=== PATIENT | female | born 1935 | race Caucasian/White ===

== ENCOUNTER 2017-05-19 10:04 | Inpatient (IN) | payer MEDICARE, OTHER ==
[~2017-05-19] VITALS: Ht 165.1 cm; Wt 61.8 kg
[2017-05-19] VITALS (87 sets, daily range): BP systolic 133; BP diastolic 73; PULSE 86; TEMP 97.8; O2SAT 89–99
[2017-05-19] MEDS ORDERED: EXELON3 MG PO (11:02)
[2017-05-19] MEDS ORDERED: COZAAR100 MG PO (11:02)
[2017-05-19] MEDS ORDERED: AZULFIDINE500 MG/TAB PO (11:03)
[2017-05-19] MEDS ORDERED: SYNTHROID0.05 MG/TA PO (11:05)
[2017-05-19] MEDS ORDERED: LAMICTAL 25MG T25 MG PO (11:06)
[2017-05-19] MEDS ORDERED: REQUIP 0.5MG0.5 MG PO (11:06)
[2017-05-19] MEDS ORDERED: ASTELIN NASAL S34 ML NS (11:07)
[2017-05-19] MEDS ORDERED: FOLIC ACID 11 MG/TA1 PO (11:07)
[2017-05-19 11:25] LABS: BASO # 0.1 (0.0-0.2); BASO % 0.7 % (0.0-2.0); EOS # 0.3 (0.0-0.7); EOS % 3.3 % (0-4.0); GRAN # 6.4 (1.4-6.5); GRAN % 66.2 % (42.2-75.2); HEMATOCRIT 40.5 % (37.0-47.0); HEMOGLOBIN 13.6 g/dl (12.5-16.0); LYMPH # 1.6 (1.2-3.4); LYMPH % 16.6 % (20.0-51.0); MEAN CELL VOLUME 88 fl (80.0-100.0); MEAN CORPUSCULAR HEMOGLOBIN 30 pg (27.0-31.0); MEAN CORPUSCULAR HGB CONC 34 g/dl (33.0-37.0); MEAN PLATELET VOLUME 9.1 fl (7.4-10.4); MONO # 1.2 (0.1-0.6); MONO % 12.6 % (1.7-9.3); PLATELET COUNT 499 K/mm3 (130-400); RED BLOOD COUNT 4.61 M/mm3 (4.10-5.30); REDCELL DISTRIBUTION WIDTH-CV 13.2 % (11.5-14.5); WHITE BLOOD COUNT 9.7 K/mm3 (4.8-10.8)
[2017-05-19 11:38] LABS: ADJUSTED CALCIUM 9.7 mg/dL (8.4-10.2); ALANINE AMINOTRANSFERASE 26 U/L (9-52); ALBUMIN 3.9 gm/dL (3.5-5.0); ALKALINE PHOSPHATASE 71 U/L (50-136); ANION GAP 12 mmol/L (7-16); BILIRUBIN,TOTAL 0.5 mg/dL (0.0-1.0); BLOOD UREA NITROGEN 23 mg/dL (7-17); CALCIUM 9.6 mg/dL (8.4-10.2); CARBON DIOXIDE 24 mmol/L (22-30); CHLORIDE 101 mmol/L (98-107); CREATININE, serum 1.01 mg/dL (0.52-1.25); GLUCOSE 96 mg/dL (74-106); POTASSIUM 4.1 mmol/L (3.4-5.0); SODIUM 137 mmol/L (137-145); TOTAL PROTEIN 7.3 gm/dL (6.4-8.2)
[2017-05-19 20:06] LABS: PH 5 (5-8); SQUAMOUS EPITHELIAL None Seen /hpf; URINE APPEARANCE Hazy; URINE BACTERIA None Seen /hpf; URINE BILIRUBIN Negative (NEGATIVE); URINE BLOOD Negative (NEGATIVE); URINE COLOR Amber; URINE GLUCOSE Negative (NEGATIVE); URINE KETONE Trace (NEGATIVE); URINE UROBILINOGEN Negative (NEGATIVE); URINE WBC 0-2 /hpf
[2017-05-19 20:16] LABS: AMPHETAMINE URINE NEGATIVE; BARBITURATES URINE NEGATIVE; BENZODIAZEPINES URINE NEGATIVE; BUPRENORPHINE URINE NEGATIVE; METHADONE URINE NEGATIVE; OPIATES URINE NEGATIVE; OXYCODONE URINE NEGATIVE; PHENCYCLIDINE URINE NEGATIVE; PROPOXYPHENE URINE NEGATIVE; THC CANNABINOIDS URINE NEGATIVE
[2017-05-20] VITALS (487 sets, daily range): BP systolic 118–129; BP diastolic 62–80; PULSE 81–111; TEMP 96.7–98.7; O2SAT 75–100
== END 2017-05-21 18:05 | DRG 885 ==
LOC: COL.ER 10:04 → ICU 20:18
PROVIDERS: Emergency Medicine; Family Medicine
DX: F23 Brief psychotic disorder (principal); F03.91 Unspecified dementia, unspecified severity, with behavioral disturbance; F05 Delirium due to known physiological condition; I10 Essential (primary) hypertension; R00.1 Bradycardia, unspecified
CPT/HCPCS: 90791-AI; 99223

== ENCOUNTER 2017-11-19 16:21 | Emergency (ER) | payer MEDICARE ==
[~2017-11-19] VITALS: Ht 165.1 cm; Wt 65.9 kg
[~2017-11-19 16:21] MED LIST: ASTELIN NASAL S34 ML NS; AZULFIDINE500 MG/TAB PO; COZAAR100 MG PO; EXELON3 MG PO; FOLIC ACID 11 MG/TA1 PO; LAMICTAL 25MG T25 MG PO; REQUIP 0.5MG0.5 MG PO; SYNTHROID0.05 MG/TA PO
[2017-11-19] MEDS ORDERED: ARICEPT ODT5 MG PO (16:30)
[2017-11-19] MEDS ORDERED: IMODIUM 2MG CAPS2 MG PO (16:32)
[2017-11-19] MEDS ORDERED: ASPIRIN 32325 MG/TAB PO (16:33)
[2017-11-19] MEDS ORDERED: MAALOX ADVANCE148 ML PO (16:34)
[2017-11-19] MEDS ORDERED: GOOD NEIGH1200 MG/15 PO (16:34)
[2017-11-19] MEDS ORDERED: DESYREL 50MG50 MG PO ×2 (16:36→16:38)
[2017-11-19] MEDS ORDERED: VALIUM 2MG T2 MG/TAB PO (16:37)
[2017-11-19] MEDS ORDERED: RISPERDAL 0.5M0.5 MG PO (16:39)
[2017-11-19] MEDS ORDERED: RISPERDAL 1M1 MG/TAB PO (16:39)
[2017-11-19 16:40] VITALS: TEMP 97.3
[2017-11-19] MEDS ORDERED: CELEXA10 MG PO (16:40)
[2017-11-19] MEDS ORDERED: ROBITUSSIN A-C S1 M1 PO (16:41)
[2017-11-19 16:43] LABS: BASO % 0.4 % (0.0-2.0); EOS # 0.3 (0.0-0.7); EOS % 2.5 % (0-4.0); GRAN % 73.8 % (42.2-75.2); LYMPH # 1.3 (1.2-3.4); LYMPH % 11.7 % (20.0-51.0); MEAN CELL VOLUME 93 fl (80.0-100.0); MEAN CORPUSCULAR HGB CONC 32 g/dl (33.0-37.0); MEAN PLATELET VOLUME 8.6 fl (7.4-10.4); MONO # 1.2 (0.1-0.6); MONO % 10.9 % (1.7-9.3); PLATELET COUNT 400 K/mm3 (130-400); RED BLOOD COUNT 3.49 M/mm3 (4.10-5.30); REDCELL DISTRIBUTION WIDTH-CV 15.2 % (11.5-14.5)
[2017-11-19] MEDS ORDERED: CARDIZEM LA120 MG PO (16:43)
[2017-11-19] MEDS ORDERED: TYLENOL 325MG325 MG PO (16:43)
[2017-11-19 16:49] LABS: HEMATOCRIT 32.4 % (37.0-47.0); HEMOGLOBIN 10.3 g/dl (12.5-16.0); MEAN CORPUSCULAR HEMOGLOBIN 30 pg (27.0-31.0)
[2017-11-19 16:54] LABS: ALANINE AMINOTRANSFERASE 24 U/L (9-52); ALBUMIN 3.4 gm/dL (3.5-5.0); ALKALINE PHOSPHATASE 80 U/L (50-136); ANION GAP 9 mmol/L (7-16); AST,SGOT 21 U/L (15-37); BILIRUBIN,TOTAL 0.3 mg/dL (0.0-1.0); BLOOD UREA NITROGEN 15 mg/dL (7-17); CALCIUM 8.5 mg/dL (8.4-10.2); CARBON DIOXIDE 29 mmol/L (22-30); CHLORIDE 98 mmol/L (98-107); CREATININE, serum 0.87 mg/dL (0.52-1.25); GLUCOSE 113 mg/dL (74-106); SODIUM 136 mmol/L (137-145); TOTAL PROTEIN 6.6 gm/dL (6.4-8.2)
[2017-11-19 17:02] LABS: ACETAMINOPHEN < 10 ug/mL (10-30); ALCOHOL(ethanol),MEDICAL < 10 mg/dL; SALICYLATE < 1.0 mg/dL
[2017-11-19 19:16] LABS: COLLECTION METHOD CLEAN CATCH
[2017-11-19 19:22] LABS: MUCOUS Present /lpf; PH 5 (5-8); SQUAMOUS EPITHELIAL None Seen /hpf; URINE APPEARANCE Clear; URINE BACTERIA Rare /hpf; URINE BILIRUBIN Negative (NEGATIVE); URINE BLOOD Negative (NEGATIVE); URINE COLOR Amber; URINE GLUCOSE Negative (NEGATIVE); URINE KETONE Trace (NEGATIVE); URINE LEUKOCYTE ESTERASE Negative (NEGATIVE); URINE NITRATE Negative (NEGATIVE); URINE PROTEIN(semi-quant) Negative (NEGATIVE); URINE RBC 0-2 /hpf
[2017-11-19 19:33] LABS: TRICYCLIC ANTIDEPRESS URINE NEGATIVE
[2017-11-19 23:26] VITALS: BP 188/90; PULSE 97
== END 2017-11-19 23:30 ==
LOC: COL.ER 16:21
PROVIDERS: Emergency Medicine
DX: F03.91 Unspecified dementia, unspecified severity, with behavioral disturbance (principal); Z91.83 Wandering in diseases classified elsewhere